=== PATIENT | male | born 1975 | race American Indian/Alaskan Native ===

== ENCOUNTER 2021-02-13 07:59 | Emergency (ER) | payer OTHER ==
--- NOTE | 2021-02-13 09:45 | Emergency Department Report ---
ED Back Pain/Injury HPI - General Chief Complaint: Shoulder Injury Stated Complaint: MIHAELA SHOULDER INJURY Time Seen by Provider: 02/13/21 09:33 Source: patient Limitations: No Limitations - History of Present Illness Initial Comments: 45 year old male with a past medical history of scoliosis, chronic low back pain secondary to degenerative disc disease, and sciatica presents to the ER today complaining of thoracic back injury. Patient states that injury occurred yesterday. Patient states that he was in the process of getting off a public bus, when the double doors closed on him, squeezing his shoulders and his upper back. He states that he alerted the bra strap immediately, who then opened back up the doors. He was only stuck in between the toes briefly. He states that since that injury has been having this pressure type pain to his thoracic back and between his shoulder blades. He states that the pain is worse with any movement. He denies any other associated symptoms. He states that he does not currently see a primary care doctor nor orthopedic or document imaging specialist due to lack of insurance. He denies any spine surgeries in the past. MD Complaint: back injury -: Sudden (yesterday) - Related Data Home Medications Medication Instructions Recorded Confirmed Last Taken Aspirin 325 mg PO DAILY 04/24/15 04/24/15 04/24/15 Previous Rx's Medication Instructions Recorded Last Taken Type Lisinopril/Hydrochlorothiazide 1 each PO QAM #30 tablet 04/24/15 Unknown Rx [Zestoretic 20-12.5 mg] Ketorolac [Toradol] 10 mg PO Q6H PRN #20 tablet 02/13/21 Unknown Rx methOCARBAMOL [Robaxin TAB] 750 mg PO Q8H PRN #30 tablet 02/13/21 Unknown Rx Allergies Allergy/AdvReac Type Severity Reaction Status Date / Time No Known Allergies Allergy Verified 02/13/21 08:18 ED Review of Systems ROS: Stated complaint: MIHAELA SHOULDER INJURY Other details as noted in HPI Comment: All other systems reviewed and negative Constitutional: denies: chills, fever Eyes: denies: eye pain, eye discharge, vision change ENT: denies: ear pain, throat pain Respiratory: denies: cough, shortness of breath, wheezing Cardiovascular: denies: chest pain, palpitations Endocrine: no symptoms reported Gastrointestinal: denies: abdominal pain, nausea, diarrhea Musculoskeletal: back pain Skin: denies: rash, lesions Neurological: denies: headache, weakness, paresthesias Psychiatric: denies: anxiety, depression, auditory hallucinations, visual hallucinations, homicidal thoughts, suicidal thoughts Hematological/Lymphatic: denies: as per HPI, easy bleeding, easy bruising, swollen glands ED Past Medical Hx - Past Medical History Hx Hypertension: Yes (noncompliant w/ meds) - Surgical History Past Surgical History?: No - Social History Smoking Status: Current Every Day Smoker Substance Use Type: None - Medications Home Medications: Home Medications Medication Instructions Recorded Confirmed Last Taken Type Aspirin 325 mg PO DAILY 04/24/15 04/24/15 04/24/15 History Lisinopril/Hydrochlorothiazide 1 each PO QAM #30 tablet 04/24/15 Unknown Rx [Zestoretic 20-12.5 mg] Ketorolac [Toradol] 10 mg PO Q6H PRN #20 tablet 02/13/21 Unknown Rx methOCARBAMOL [Robaxin TAB] 750 mg PO Q8H PRN #30 tablet 02/13/21 Unknown Rx ED Physical Exam - General Limitations: No Limitations General appearance: alert, in no apparent distress - Head Head exam: Present: atraumatic, normocephalic, normal inspection - Eye Eye exam: Present: normal appearance, PERRL, EOMI Pupils: Present: normal accommodation - Neck Neck exam: Present: normal inspection, full ROM - Respiratory Respiratory exam: Present: normal lung sounds bilaterally. Absent: respiratory distress - Cardiovascular Cardiovascular Exam: Present: regular rate, normal rhythm, normal heart sounds - GI/Abdominal GI/Abdominal exam: Present: soft. Absent: distended, tenderness, guarding - Back Exam Back exam: Present: normal inspection, full ROM, paraspinal tenderness (Mid thoracic spine, mainly left-sided, mild), vertebral tenderness (Mid thoracic spine, mild), other (Scoliosis noted to his spine; ) - Neurological Exam Neurological exam: Present: alert, oriented X3, CN II-XII intact, normal gait. Absent: motor sensory deficit - Psychiatric Psychiatric exam: Present: normal affect, normal mood - Skin Skin exam: Present: intact ED Course Vital Signs 02/13/21 02/13/21 08:16 11:18 Temperature 98.4 F Pulse Rate 102 H 86 Respiratory 15 16 Rate Blood Pressure 167/113 165/106 O2 Sat by Pulse 98 97 Oximetry ED Medical Decision Making - Radiology Data Radiology results: report reviewed Patient: CHRISTINA KAUFMAN MR#: [id number] : 1975 Acct:[id number] Age/Sex: 45 / M ADM Date: 02/13/21 Loc: ED Attending Dr: Ordering Physician: ROHITH REESE Date of Service: 02/13/21 Procedure(s): XR spine thoracic 3V Accession Number(s): [id number] cc: ROHITH REESE Fluoro Time In Minutes: THORACIC SPINE 3 VIEWS INDICATION / CLINICAL INFORMATION: thoracic back injury. COMPARISON: None available. FINDINGS: Marked thoracolumbar scoliosis. No other significant skeletal abnormality Signer Name: Salvador Armando MD FACR Signed: 02/13/2021 10:52 AM Workstation Name: [id number] Transcribed By: MS Dictated By: Salvador Armando MD Electronically Authenticated By: Salvador Armando MD Signed Date/Time: 02/13/21 1052 DD/ 1050 TD/TT: - Medical Decision Making T-spine xray show severe s scoliosis but otherwise nothing acute. Suspect muscle strain at this time. Discussed imaging results with patient, suspected diagnosis and treatment plan with patient. Informed him that he needs to follow-up with the orthospine specialist will be given a referral. Patient blood pressure noted to be elevated during stay, he has known history of hypertension but has been noncompliant with his medications. Patient states that he has been tried on several blood pressure medication but he has stopped taking them due to side effects. Patient is refusing any prescriptions or any medications for his blood pressure. He states that his been try to control his blood pressure with natural remedies. Well-appearing, nontoxic and not in any acute distress. He is neurologically intact with a normal gait in the ER. No further work-up or admission indicated at this time. Patient stable at time of discharge. Critical care attestation.: If time is entered above; I have spent that time in minutes in the direct care of this critically ill patient, excluding procedure time. ED Disposition Clinical Impression: Strain of thoracic back region Disposition: - TO HOME OR SELFCARE Is pt being admited?: No Does the pt Need Aspirin: No Condition: Stable Instructions: Thoracic Strain Rehab-SportsMed Additional Instructions: Take the medications as prescribed. It is important that you establish with a PCP and or orthospine specialist for further evaluation especially if your symptoms continues. Return to ED if symptoms changes or worsens in any way. Prescriptions: methOCARBAMOL [Robaxin TAB] 750 mg PO Q8H PRN #30 tablet PRN Reason: Muscle Spasm Ketorolac [Toradol] 10 mg PO Q6H PRN #20 tablet PRN Reason: Pain Referrals: JM ARMENTA MD [Staff Physician] - 3-5 Days [facility] [Provider Group] - 3-5 Days Forms: Work/School Release Form(ED) Time of Disposition: 11:15
--- NOTE | 2021-02-13 10:57 | XRay Report ---
THORACIC SPINE 3 VIEWS INDICATION / CLINICAL INFORMATION: thoracic back injury. COMPARISON: None available. FINDINGS: Marked thoracolumbar scoliosis. No other significant skeletal abnormality Signer Name: Salvador Armando MD FACAntonia Signed: 02/13/2021 10:52 AM Workstation Name: [id number]
[2021-02-13 11:27] VITALS: BP 165/106
== END 2021-02-13 13:00 | disposition home or self-care (01) ==
LOC: ED 07:59
DX: S29.012A Strain of muscle and tendon of back wall of thorax, initial encounter (principal); I10 Essential (primary) hypertension; F17.200 Nicotine dependence, unspecified, uncomplicated; Z79.899 Other long term (current) drug therapy; X58.XXXA Exposure to other specified factors, initial encounter; Y93.89 Activity, other specified; Y92.89 Other specified places as the place of occurrence of the external cause; Y99.8 Other external cause status
CPT/HCPCS: 72072